=== PATIENT | female | born 1970 | race Caucasian/White ===

== ENCOUNTER → 2017-04-22 | Day surgery (SDC) | payer BC, MEDICAID ==
[2017-04-20 15:36] LABS: BASOPHILS % (AUTO) 0.5 % (0-1); EOSINOPHILS # (AUTO) 0.3 X10'3 (0-0.9); EOSINOPHILS % (AUTO) 3.2 % (0-6); LYMPHOCYTES # (AUTO) 2.5 X10'3 (1.1-4.8); LYMPHOCYTES % (AUTO) 28.8 % (21-51); MEAN CORPUSCULAR HEMOGLOBIN 31.8 PG (27.0-31.0); MEAN CORPUSCULAR HGB CONC 34.6 % (33.0-36.5); MEAN CORPUSCULAR VOLUME 91.9 FL (78-98); MEAN PLATELET VOLUME 7.6 FL (7.4-10.4); MONOCYTES # (AUTO) 0.5 X10'3 (0-0.9); NEUTROPHILS # (AUTO) 5.3 X10'3 (1.8-7.7); NEUTROPHILS % (AUTO) 61.5 % (42-75); PRE OP HEMATOCRIT 41.4 % (35.0-45.0); PRE OP HEMOGLOBIN 14.3 g/dL (12.0-16.0); PRE OP PLATELET COUNT 287 X10'3 (140-440); RED CELL DISTRIBUTION WIDTH 13.2 % (11.5-14.5)
[2017-04-20 15:42] LABS: HCG SERUM QL NEGATIVE
[2017-04-20 15:43] LABS: ALBUMIN 3.7 G/DL (3.4-5.0); ANION GAP 8 (8-16); BLOOD UREA NITROGEN 13 MG/DL (7-18); BUN/CREATININE RATIO 17.1 (6.6-38.0); CALCIUM 8.9 MG/DL (8.5-10.1); CHLORIDE 105 MMOL/L (99-107); CREATININE 0.76 MG/DL (0.40-0.90); GLUCOSE 81 MG/DL (70-104); POTASSIUM 3.6 MMOL/L (3.5-5.1); SODIUM 140 MMOL/L (135-145); TOTAL CARBON DIOXIDE 27.5 MMOL/L (24-32); eGFR 81 ML/MIN
[~2017-04-22] VITALS: Ht 162.6 cm; Wt 90.5 kg
[2017-04-22] VITALS (8 sets, daily range): BP systolic 11–111; BP diastolic 63–77
[~2017-04-22] MED LIST: CRAN500T2 PO; CYAN-19 PO; IBUP-1984 PO; LIDOcaine 2% (20mg/ml) 5ml vial ONE; MULT-85 PO; dexamethasone sod phosphate 4mg/ml inj. ONE; famotidine 20mg tablet PO ONE; fentaNYL/PF 50MCG/1 ML 2ML syringe ONE; glycopyrrolate 0.2mg/ml inj ONE; ibuprofen 200mg tablet PO PRN; meperidine/PF 50mg/ml syringe IV PRN; midazolam 2 mg/2 ml injection ONE; morphine 2 MG/ML inj. syringe IV PRN; neostigmine methylsulfate 1 MG/ML 10ml vial ONE; ondansetron/PF 4mg/2ml inj IV PRN; ondansetron/PF 4mg/2ml inj ONE; proCHLORperazine 10 MG/2 ml inj IV PRN; propofol inj 20 ML IV ONE; ringers solution, lacted 1,000 ML IV SCH; rocuronium 10mg/ml inj IV ONE; sevoflurane 250ml liquid IH ONE; traMADol 50MG tablet PO PRN
== END | disposition home or self-care (01) ==
LOC: PAS 08:32
PROVIDERS: ATTEND Obstetrics & Gynecology
DX: Z30.2 Encounter for sterilization (principal); N80.2 Endometriosis of fallopian tube; E66.9 Obesity, unspecified; Z79.899 Other long term (current) drug therapy
CPT/HCPCS: 36415; 58670; 80048; 84703; 85025; J1100; J2001; J2175; J2250; J2405; J2704; J2710; J3010; J3490; J7120; A7000

== ENCOUNTER 2019-08-21 20:37 | Emergency (ER) | payer BC, OTHER ==
[~2019-08-21] VITALS: Ht 162.6 cm; Wt 100.2 kg
[~2019-08-21 20:37] MED LIST changes: -CYAN-19 PO; +CYAN-51 PO; -LIDOcaine 2% (20mg/ml) 5ml vial ONE; -dexamethasone sod phosphate 4mg/ml inj. ONE; -famotidine 20mg tablet PO ONE; -fentaNYL/PF 50MCG/1 ML 2ML syringe ONE; -glycopyrrolate 0.2mg/ml inj ONE; -ibuprofen 200mg tablet PO PRN; -meperidine/PF 50mg/ml syringe IV PRN; -midazolam 2 mg/2 ml injection ONE; -morphine 2 MG/ML inj. syringe IV PRN; -neostigmine methylsulfate 1 MG/ML 10ml vial ONE; -ondansetron/PF 4mg/2ml inj IV PRN; -ondansetron/PF 4mg/2ml inj ONE; -proCHLORperazine 10 MG/2 ml inj IV PRN; -propofol inj 20 ML IV ONE; -ringers solution, lacted 1,000 ML IV SCH; -rocuronium 10mg/ml inj IV ONE; -sevoflurane 250ml liquid IH ONE; -traMADol 50MG tablet PO PRN
[2019-08-21 20:43] VITALS: BP 150/104
[2019-08-21] MEDS ORDERED: TETanus/Pertussis (Acell)/Diphther VAC/PF (Tdap-Adult) 0.5ml syringe IMVAC ONE (21:10)
== END 2019-08-21 21:34 | disposition home or self-care (01) ==
LOC: ER 20:38
DX: S51.812A Laceration without foreign body of left forearm, initial encounter (principal); Z79.899 Other long term (current) drug therapy; W26.8XXA Contact with other sharp object(s), not elsewhere classified, initial encounter; Y93.89 Activity, other specified; Y92.811 Bus as the place of occurrence of the external cause; Y99.8 Other external cause status
CPT/HCPCS: 12001; 90471; 90715; 99283